=== PATIENT | male | born 2000 | race Caucasian/White ===

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

== ENCOUNTER 2020-12-24 21:57 | Emergency (ER) | payer SELFPAY ==
[~2020-12-24] VITALS: Ht 172.7 cm; Wt 73.0 kg
[2020-12-24] MEDS ORDERED: TETRACAINE 0.5% OPHTH DROPS 4ML BOTHEYE ONE (23:00)
[2020-12-24] MEDS ORDERED: FLUORESCEIN SODIUM 1MG/STRIP BOTHEYE ONE (23:00)
[2020-12-25] MEDS ORDERED: POLY10DR3 EACHEYE (01:12)
[2020-12-25 01:54] VITALS: BP 124/72
== END 2020-12-25 01:55 | disposition home or self-care (01) ==
LOC: ER 22:01
DX: T59.3X3A Toxic effect of lacrimogenic gas, assault, initial encounter (principal); H57.13 Ocular pain, bilateral; H53.8 Other visual disturbances; Y08.89XA Assault by other specified means, initial encounter; Y92.89 Other specified places as the place of occurrence of the external cause; R03.0 Elevated blood-pressure reading, without diagnosis of hypertension; F12.90 Cannabis use, unspecified, uncomplicated
CPT/HCPCS: 99283

== ENCOUNTER 2024-12-05 15:08 | Emergency (ER) | payer MEDICAID ==
[~2024-12-05] VITALS: Ht 175.3 cm; Wt 82.0 kg
[~2024-12-05 15:08] MED LIST: POLY10DR18 EACHEYE
[2024-12-05 15:16] VITALS: O2SAT 97
[2024-12-05] MEDS ORDERED: SENN-362 MT (15:48)
[2024-12-05] MEDS ORDERED: POLY17PO3 MT (15:48)
[2024-12-05] MEDS ORDERED: DOCU-138 MT (15:48)
[2024-12-05 16:18] VITALS: BP 122/91; PULSE 85; RESP 17; TEMP 36.6; O2SAT 96
== END 2024-12-05 16:21 | disposition home or self-care (01) ==
LOC: ER 15:08
DX: K59.00 Constipation, unspecified (principal); F12.90 Cannabis use, unspecified, uncomplicated; Z79.899 Other long term (current) drug therapy; Z98.890 Other specified postprocedural states
CPT/HCPCS: 99282

== ENCOUNTER 2025-02-27 14:16 | Emergency (ER) | payer BC, MEDICAID ==
[~2025-02-27] VITALS: Ht 175.3 cm; Wt 75.0 kg
[~2025-02-27 14:16] MED LIST changes: +DOCU-138 MT; +POLY17PO3 MT; +SENN-362 MT
[2025-02-27 14:32] VITALS: O2SAT 99
[2025-02-27 17:16] LABS: BASOPHILS % 0.7 % (0.0-2.0); HEMATOCRIT. 52.6 % (42.0-52.0); HEMOGLOBIN. 18.1 g/dL (14.0-18.0); LYMPHOCYTES % 18.3 % (20.0-50.0); MEAN CORPUSCULAR HEMOGLOBIN 30.1 pg (28.0-32.0); MEAN CORPUSCULAR HGB CONC 34.5 g/dL (31.0-37.0); MEAN CORPUSCULAR VOLUME 87.2 fL (80.0-94.0); MEAN PLATELET VOLUME 8.8 fl (7.4-10.4); MONOCYTES % 5.5 % (2.0-8.0); NEUTROPHILS % 73.5 % (40.0-76.0); PLATELET 211 x1000/uL (130-400); RED BLOOD CELL COUNT 6.03 mill/uL (4.7-6.1); RED CELL DISTRIBUTION WIDTH 13.3 % (11.6-14.6); WHITE BLOOD COUNT 7.2 x1000/uL (4.5-11.0)
[2025-02-27 17:25] LABS: CHLORIDE 102 mEq/L (98-107); POTASSIUM 4.1 mEq/L (3.5-5.1); SODIUM 138 mEq/L (136-145)
[2025-02-27 17:26] LABS: CALCIUM 10.1 mg/dL (8.7-10.4); CARBON DIOXIDE 29 mEq/L (21-32)
[2025-02-27 17:31] LABS: CREATININE 1.1 mg/dL (0.6-1.3); ETHANOL BLOOD < 10 mg/dL (<10); GLUCOSE 106 mg/dL (70-105); TROPONIN I HIGH SENSITIVITY 4 ng/L (3.0-53); UREA NITROGEN BLOOD 12 mg/dL (9-23)
[2025-02-27 17:52] VITALS: BP 119/70; PULSE 61; RESP 16; TEMP 36.7; O2SAT 98
[2025-02-27 18:13] LABS: CLARITY URINE CLEAR (CLEAR); COLOR URINE YELLOW (YELLOW); GLUCOSE URINE NEGATIVE (NEGATIVE); KETONES URINE NEGATIVE (NEGATIVE); LEUKOCYTE ESTERASE URINE NEGATIVE (NEGATIVE); NITRITE URINE NEGATIVE (NEGATIVE); OCCULT BLOOD URINE NEGATIVE (NEGATIVE); PH URINE 6.5 (4.5-8.0); PROTEIN URINE NEGATIVE (NEGATIVE); SPECIFIC GRAVITY URINE 1.008 (1.005-1.030); UROBILINOGEN URINE 0.2 E.U./dL (0.2-1.0)
[2025-02-27 18:33] LABS: *AMPHETAMINES SCREEN URINE NEGATIVE (NEGATIVE); *BARBITURATES SCREEN URINE NEGATIVE (NEGATIVE); *BENZODIAZEPINES SCREEN URINE NEGATIVE (NEGATIVE)
[2025-02-27] MEDS ORDERED: ACET-2708 PO (18:33)
[2025-02-27] MEDS ORDERED: FAMO20TA8 MT (18:33)
[2025-02-27 18:34] LABS: *COCAINE SCREEN URINE NEGATIVE (NEGATIVE); CANNABINOID URINE SCREEN NEGATIVE (NEGATIVE); ECSTASY MDMA SCREEN URINE NEGATIVE (NEGATIVE); METHADONE URINE SCREEN NEGATIVE (NEGATIVE); OPIATES URINE SCREEN NEGATIVE (NEGATIVE); PHENCYCLIDINE URINE SCREEN NEGATIVE (NEGATIVE)
== END 2025-02-27 18:39 | disposition home or self-care (01) ==
LOC: ER 14:16
DX: K21.9 Gastro-esophageal reflux disease without esophagitis (principal); M79.18 Myalgia, other site; I10 Essential (primary) hypertension; Z79.899 Other long term (current) drug therapy
CPT/HCPCS: 36415; 71045; 80048; 80305; 80320; 81003; 84484; 85025; 93005; 99285; G0480

== ENCOUNTER 2025-10-15 16:26 | Emergency (ER) | payer MEDICAID ==
[~2025-10-15] VITALS: Ht 180.3 cm; Wt 99.0 kg
[~2025-10-15 16:26] MED LIST changes: +ACET-2708 PO; +FAMO20TA8 MT
[2025-10-15 16:50] VITALS: TEMP 37.1; O2SAT 98
[2025-10-15 17:16] LABS: BASOPHILS % 0.7 % (0.0-2.0); EOSINOPHILS % 1.5 % (0.0-5.0); HEMATOCRIT. 49.5 % (42.0-52.0); HEMOGLOBIN. 16.5 g/dL (14.0-18.0); LYMPHOCYTES % 20.1 % (20.0-50.0); MEAN PLATELET VOLUME 9.4 fl (7.4-10.4); MONOCYTES % 5.0 % (2.0-8.0); NEUTROPHILS % 72.7 % (40.0-76.0); PLATELET 225 x1000/uL (130-400); RED BLOOD CELL COUNT 5.64 mill/uL (4.7-6.1); RED CELL DISTRIBUTION WIDTH 13.5 % (11.6-14.6)
[2025-10-15 17:39] LABS: CREATININE 1.1 mg/dL (0.6-1.3); UREA NITROGEN BLOOD 9 mg/dL (9-23)
[2025-10-15] MEDS: ONDANSETRON 4MG ODT PO ONE (19:43)
[2025-10-15 20:10] LABS: ETHANOL BLOOD < 10 mg/dL (<10)
[2025-10-15 20:11] LABS: PROTEIN TOTAL 7.6 g/dL (6.0-8.3)
[2025-10-15 20:12] LABS: ASPARTATE AMINOTRANSFERASE 25 IU/L (<34); BILIRUBIN DIRECT 0.2 mg/dL (<=3.0); BILIRUBIN TOTAL 0.7 mg/dL (0.1-1.0); TROPONIN I HIGH SENSITIVITY < 4 ng/L (3.0-53)
[2025-10-15 20:31] LABS: CLARITY URINE CLEAR (CLEAR); COLOR URINE YELLOW (YELLOW); GLUCOSE URINE NEGATIVE (NEGATIVE); KETONES URINE NEGATIVE (NEGATIVE); LEUKOCYTE ESTERASE URINE NEGATIVE (NEGATIVE); NITRITE URINE NEGATIVE (NEGATIVE); OCCULT BLOOD URINE NEGATIVE (NEGATIVE); PH URINE 6.0 (4.5-8.0); PROTEIN URINE NEGATIVE (NEGATIVE); SPECIFIC GRAVITY URINE 1.011 (1.005-1.030); UROBILINOGEN URINE 0.2 E.U./dL (0.2-1.0)
[2025-10-15] MEDS ORDERED: MECL-217 MT (20:40)
[2025-10-15] MEDS ORDERED: ONDA-239 PO (20:40)
[2025-10-15 20:45] LABS: *AMPHETAMINES SCREEN URINE NEGATIVE (NEGATIVE); *BARBITURATES SCREEN URINE NEGATIVE (NEGATIVE); *BENZODIAZEPINES SCREEN URINE NEGATIVE (NEGATIVE); *COCAINE SCREEN URINE NEGATIVE (NEGATIVE); CANNABINOID URINE SCREEN NEGATIVE (NEGATIVE); ECSTASY MDMA SCREEN URINE NEGATIVE (NEGATIVE); METHADONE URINE SCREEN NEGATIVE (NEGATIVE); OPIATES URINE SCREEN NEGATIVE (NEGATIVE); PHENCYCLIDINE URINE SCREEN NEGATIVE (NEGATIVE)
[2025-10-15 21:05] VITALS: BP 123/85; PULSE 62; RESP 12; O2SAT 99
[2025-10-15 22:13] LABS: INFLUENZA TYPE A Presumptive Negative (Pres. Neg.)
[2025-10-15 22:14] LABS: INFLUENZA TYPE B Presumptive Negative (Pres. Neg.)
[2025-10-15 22:15] LABS: RESPIRATORY SYNCYTIAL VIRUS Not Detected (Not Detectd)
== END 2025-10-15 21:07 | disposition home or self-care (01) ==
LOC: ER 16:26
DX: R42 Dizziness and giddiness (principal); I10 Essential (primary) hypertension; Z79.899 Other long term (current) drug therapy; Z20.822 Contact with and (suspected) exposure to COVID-19
CPT/HCPCS: 80076; 80305; 80048; 81003; 80320; 83690; 83735; 85025; 87420; 84484; 87804 ×2; 36415; 71045; 93005; 99285; Q0162; G0480